=== PATIENT | male | born 1965 | race Caucasian/White ===

== ENCOUNTER → 2017-03-31 | Outpatient (CLI) | payer OTHER ==
[2016-04-02 18:17] VITALS: BP 147/92
[~2017-03-31] MED LIST: CYCL5TAB PO; IBUP-1060 PO; METH5TAB6 PO; OMEP20CA9 PO; OXYC5CAP PO
--- NOTE | 2017-03-31 09:59 | CARD ---
MR#: [id number] Date of Study: 03/31/2017 Ordering Physician: KIMMY SIMMONS, Referring Physician: Eulalia CELESTE: Jimmy Tucker APPROVED REPORT EXAM: Two-dimensional and M-mode echocardiogram with Doppler and color Doppler. Other Information Quality : GoodHR: 96bpm INDICATION Dyspnea Fatigue RISK FACTORS Smoking 2D DIMENSIONS RVDd3.1 (2.9-3.5cm)Left Atrium(2D)3.4 (1.6-4.0cm) IVSd1.1 (0.7-1.1cm)Aortic Root(2D)3.5 (2.0-3.7cm) LVDd4.0 (3.9-5.9cm)LVOT Diameter2.2 (1.8-2.4cm) PWd1.1 (0.7-1.1cm)LVDs2.7 (2.5-4.0cm) FS (%) 32.4 %SV43.3 ml LVEF(%)61.3 (>50%) Aortic Valve AoV Peak [place].155.2cm/sAoV VTI27.9cm AO Peak GR.9.6mmHgLVOT Peak [place].128.3cm/s AO Mean GR.6mmHgAVA (VMAX)2.32cm2 Mitral Valve MV E Cltaenqe51.0cm/sMV DECEL [id number] MV A Clrreake47.1cm/sMV [id number] E/A Ratio0.8MVA (PHT)2.13cm2 TDI E/Lateral E'6.2E/Medial E'8.8 Pulmonary Valve PV Peak Advnzqsl085.9cm/sPV Peak Grad.4mmHg Tricuspid Valve TR P. Ayvraojn932xi/sRAP [id number] TR Peak Gr.22mmHg Pulmonary Vein S1 Nfwoybzt37.4cm/sD2 Lbpqmcgw05.9cm/s LEFT VENTRICLE The left ventricle is normal size. There is normal left ventricular wall thickness. The left ventricu lar systolic function is low normal and the ejection fraction is within normal range. EF 50-55% There is normal LV segmental wall motion. Transmitral Doppler flow pattern is Grade I-abnormal relaxation pattern. No left ventricle thrombus noted on this study. RIGHT VENTRICLE The right ventricle is normal size. The right ventricular systolic function is normal. ATRIA The left atrium size is normal. The right atrium size is normal. The interatrial septum is intact wit h no evidence for an atrial septal defect or patent foramen ovale as noted on 2-D or Doppler imaging. AORTIC VALVE The aortic valve is thickened but opens well. Doppler and Color Flow revealed mild aortic regurgitati on. There is no significant aortic valvular stenosis. There is no aortic valvular vegetation. MITRAL VALVE The mitral valve is moderately thickened. There is no evidence of mitral valve prolapse. There is no mitral valve stenosis. Doppler and Color Flow revealed no mitral valve regurgitation noted. TRICUSPID VALVE The tricuspid valve leaflets are thickened , but open well. Doppler and Color Flow revealed trace tri cuspid regurgitation. There is no tricuspid valve prolapse or vegetation. There is no tricuspid valve stenosis. PULMONIC VALVE Pulmonic valve is not visualized well. Doppler and Color Flow revealed no pulmonic valvular regurgita tion. There is no pulmonic valvular stenosis. GREAT VESSELS The aortic root is normal in size. The IVC is normal in size and collapses >50% with inspiration. PERICARDIAL EFFUSION There is no pleural effusion. There is no evidence of significant pericardial effusion. Critical Notification Critical Value: No <Conclusion> The left ventricular systolic function is low normal and the ejection fraction is within normal range . EF 50-55% There is normal LV segmental wall motion. Signed by : Juan Pablo Alfredo, Electronically Approved : 03/31/2017 09:58:59
== END | disposition home or self-care (01) ==
LOC: ECHO 07:52
PROVIDERS: ATTEND Physician Assistant
DX: R53.83 Other fatigue (principal); R06.00 Dyspnea, unspecified; F17.200 Nicotine dependence, unspecified, uncomplicated
CPT/HCPCS: 93306

== ENCOUNTER → 2017-04-08 | Outpatient (CLI) | payer OTHER | END | disposition home or self-care (01) | LOC: MRI 14:20 | DX: G43.909 Migraine, unspecified, not intractable, without status migrainosus (principal); M47.892 Other spondylosis, cervical region | CPT/HCPCS: 70551; 72050 ==

== ENCOUNTER → 2017-05-11 | Outpatient (CLI) | payer OTHER | END | disposition home or self-care (01) | LOC: LAB 11:36 | DX: J20.9 Acute bronchitis, unspecified (principal) | CPT/HCPCS: 71046 ==

== ENCOUNTER → 2017-07-19 | Outpatient (CLI) | payer OTHER | END | disposition home or self-care (01) | LOC: KCIC MRI 14:19 | DX: M48.02 Spinal stenosis, cervical region (principal); M25.78 Osteophyte, vertebrae | CPT/HCPCS: 72141 ==